=== PATIENT | female | born 1965 | race Two or more races ===

== ENCOUNTER 2024-11-24 19:35 | Emergency (ER) | payer OTHER ==
[~2024-11-24] VITALS: Ht 167.6 cm; Wt 99.8 kg
[2024-11-24] MEDS ORDERED: CRESTOR40 MG PO (19:44)
[2024-11-24] MEDS ORDERED: KERENDIA20 MG PO (19:45)
[2024-11-24] MEDS ORDERED: LOSARTAN POTAS100 MG PO (19:45)
[2024-11-24] MEDS ORDERED: CHILDREN'S ASPI81 MG (19:45)
[2024-11-24] MEDS ORDERED: XARELTO2.5 MG PO (19:46)
[2024-11-24] MEDS ORDERED: SYNTHROID300 MCG PO (19:47)
[2024-11-24] MEDS ORDERED: HUMALOG100 UNIT/2 SQ (19:48)
[2024-11-24] MEDS ORDERED: GRALISE600 MG PO (19:49)
[2024-11-24] MEDS ORDERED: [UNRECOGNIZED DRUG - OTHER] PO (19:50)
[2024-11-24] MEDS ORDERED: WEGOVY2.4 MG/0.7 SQ (19:51)
[2024-11-24] MEDS ORDERED: ACETAMINOPHEN 500 MG GEL..CAP PO ONE ×2 (20:44→21:00)
== END 2024-11-25 01:32 | disposition home or self-care (01) ==
LOC: ER 20:13
DX: S00.93XA Contusion of unspecified part of head, initial encounter (principal); S16.1XXA Strain of muscle, fascia and tendon at neck level, initial encounter; W07.XXXA Fall from chair, initial encounter; Y93.89 Activity, other specified; Y92.89 Other specified places as the place of occurrence of the external cause; Y99.9 Unspecified external cause status; M51.369 Other intervertebral disc degeneration, lumbar region without mention of lumbar back pain or lower extremity pain; M85.88 Other specified disorders of bone density and structure, other site; E11.9 Type 2 diabetes mellitus without complications; Z79.4 Long term (current) use of insulin; Z79.84 Long term (current) use of oral hypoglycemic drugs; I10 Essential (primary) hypertension